=== PATIENT | female | born 1985 | race Caucasian/White ===

== ENCOUNTER 2018-01-16 08:01 | Outpatient (CLI) | payer OTHER ==
[~2018-01-16] VITALS: Ht 172.7 cm; Wt 83.6 kg
[2018-01-16] VITALS (10 sets, daily range): BP systolic 72–130; BP diastolic 52–81; PULSE 75–105; TEMP 98.6
[~2018-01-16 08:01] MED LIST: CIPRO 500MG TA500 MG PO; FLAGYL500 MG PO; NORCO 325 MG-51 TAB PO; PRENATAL1 TA1 PO
[2018-01-16] MEDS ORDERED: PRENATAL1 TA7 PO (08:29)
[2018-01-16] MEDS ORDERED: BALSALAZIDE DI750 MG PO (08:30)
== END 2018-01-16 10:58 | disposition home or self-care (01) ==
LOC: LDRO 08:01
DX: O32.1XX0 Maternal care for breech presentation, not applicable or unspecified (principal); Z3A.36 36 weeks gestation of pregnancy
CPT/HCPCS: J3105; J7120

== ENCOUNTER 2018-02-11 04:18 | Inpatient (IN) | payer OTHER ==
[2018-02-11] VITALS (35 sets, daily range): BP systolic 70–125; BP diastolic 40–81; PULSE 67–95; TEMP 97.7–98.5
[~2018-02-11] VITALS: Ht 172.7 cm; Wt 85.5 kg
[~2018-02-11 04:18] MED LIST changes: +BALSALAZIDE DI750 MG PO; +PRENATAL1 TA7 PO
[2018-02-11 06:57] LABS: BASO % 0.4 % (0.0-2.0); EOS % 0.3 % (0-4.0); GRAN # 8.3 (1.4-6.5); GRAN % 78.9 % (42.2-75.2); HEMATOCRIT 38.3 % (37.0-47.0); LYMPH # 1.5 (1.2-3.4); LYMPH % 14.4 % (20.0-51.0); MEAN CELL VOLUME 85 fl (80.0-100.0); MEAN CORPUSCULAR HEMOGLOBIN 29 pg (27.0-31.0); MEAN CORPUSCULAR HGB CONC 34 g/dl (33.0-37.0); MEAN PLATELET VOLUME 11.2 fl (7.4-10.4); MONO # 0.6 (0.1-0.6); MONO % 5.6 % (1.7-9.3); PLATELET COUNT 163 K/mm3 (130-400); RED BLOOD COUNT 4.52 M/mm3 (4.10-5.30); REDCELL DISTRIBUTION WIDTH-CV 13.1 % (11.5-14.5)
[2018-02-12] VITALS: BP 106/74; PULSE 83; TEMP 97.9
[2018-02-12 07:35] LABS: HEMOGLOBIN 11.6 g/dl (12.5-16.0)
[2018-02-12 08:58] VITALS: BP 116/83; PULSE 77; TEMP 98
[2018-02-12] MEDS ORDERED: IBU600 MG PO (10:00)
== END 2018-02-12 13:50 | disposition home or self-care (01) | DRG 775 ==
LOC: LDRO 04:18 → LDR 05:57 → OB 14:50
PROVIDERS: Obstetrics & Gynecology
PROC: 10E0XZZ Delivery of Products of Conception, External Approach (ICD-10-PCS; principal; 2018-02-11)
PROC: 0KQM0ZZ Repair Perineum Muscle, Open Approach (ICD-10-PCS; 2018-02-11)
DX: O48.0 Post-term pregnancy (principal); O70.1 Second degree perineal laceration during delivery; Z3A.40 40 weeks gestation of pregnancy; Z37.0 Single live birth
CPT/HCPCS: J2590; J2795; J7120